=== PATIENT | female | born 1995 | race American Indian/Alaskan Native ===

== ENCOUNTER 2020-12-04 09:15 | Emergency (ER) | payer OTHER ==
[2020-12-04] MEDS ORDERED: SODIUM CHLORIDE 0.9% 1000 ML 1,000 ML IV ONE (09:50)
[2020-12-04] MEDS ORDERED: MORPHINE 4 MG/1 ML INJ IV ONE (09:50)
[2020-12-04] MEDS ORDERED: ONDANSETRON 4 MG/2 ML INJ IV ONE (09:50)
--- NOTE | 2020-12-04 09:53 | Emergency Department Report ---
ED Abdominal Pain HPI - General Chief Complaint: Abdominal Pain Stated Complaint: PAIN IN PELVIC AREA Time Seen by Provider: 12/04/20 09:36 Source: patient Mode of arrival: Ambulatory Limitations: No Limitations - History of Present Illness Initial Comments: 25-year-old female presents to the ER with sudden onset of severe low abdominal pain and right flank pain. Patient states that the pain has been constant and described as a pressure type pain with associated dysuria, hematuria and urinary frequency. She denies any nausea, vomiting, fever or chills. She denies any abnormal vaginal discharge or bleeding. She states that her last menstrual cyc le was November 12. She is not on any control. She is sexually active but denies any new sexual partners. Patient denies any significant past medical history and she denies any past surgical history. MD Complaint: abdominal pain, flank pain -: Sudden, This morning Severity scale (0 -10): 10 - Related Data Previous Rx's Medication Instructions Recorded Last Taken Type Acetaminophen/Codeine [Tylenol 1 tab PO Q6H PRN #12 tab 12/04/20 Unknown Rx /Codeine # 3 tab] cephALEXin [Keflex] 500 mg PO Q6HR #40 capsule 12/04/20 Unknown Rx metroNIDAZOLE [Flagyl] 500 mg PO Q12HR #14 tab 12/04/20 Unknown Rx Allergies Allergy/AdvReac Type Severity Reaction Status Date / Time No Known Allergies Allergy Unverified 12/04/20 09:32 ED Review of Systems ROS: Stated complaint: PAIN IN PELVIC AREA Other details as noted in HPI Comment: All other systems reviewed and negative Constitutional: denies: chills, fever Eyes: denies: eye pain, eye discharge, vision change ENT: denies: ear pain, throat pain, dental pain, hearing loss, epistaxis, congestion Respiratory: denies: cough, shortness of breath, SOB with exertion, SOB at rest, wheezing Cardiovascular: denies: chest pain, palpitations Gastrointestinal: abdominal pain. denies: nausea, vomiting, diarrhea, constipation, hematemesis, melena, hematochezia Genitourinary: denies: urgency, dysuria, frequency, hematuria, discharge, abnormal menses, dyspareunia Musculoskeletal: back pain Skin: denies: rash, lesions, change in color, change in hair/nails, pruritus Neurological: denies: headache, weakness, numbness, paresthesias, confusion, abnormal gait, vertigo Psychiatric: denies: anxiety, depression, auditory hallucinations, visual hallucinations, homicidal thoughts, suicidal thoughts Hematological/Lymphatic: denies: easy bleeding, easy bruising, swollen glands ED Past Medical Hx - Medications Home Medications: Home Medications Medication Instructions Recorded Confirmed Last Taken Type Acetaminophen/Codeine [Tylenol 1 tab PO Q6H PRN #12 tab 12/04/20 Unknown Rx /Codeine # 3 tab] cephALEXin [Keflex] 500 mg PO Q6HR #40 capsule 12/04/20 Unknown Rx metroNIDAZOLE [Flagyl] 500 mg PO Q12HR #14 tab 12/04/20 Unknown Rx ED Physical Exam - General Limitations: No Limitations General appearance: alert, in distress (Patient appears to be in pain and restless and uncomfortable) - Head Head exam: Present: atraumatic, normocephalic, normal inspection - Eye Eye exam: Present: normal appearance, PERRL, EOMI Pupils: Present: normal accommodation - Neck Neck exam: Present: normal inspection, full ROM - Respiratory Respiratory exam: Present: normal lung sounds bilaterally. Absent: respiratory distress, wheezes, rales, rhonchi - Cardiovascular Cardiovascular Exam: Present: regular rate, normal rhythm, normal heart sounds - GI/Abdominal GI/Abdominal exam: Present: soft, tenderness (Tenderness to palpation right lower quadrant and suprapubic area). Absent: distended, guarding, rebound, rigid - External exam: Present: normal external exam, other (Formulation Scientist present) Speculum exam: Present: vaginal discharge (Small amount of white discharge) Bi-manual exam: Present: adnexal tenderness (Mild right adnexal). Absent: cervical motion tendernes, adnexal mass, uterine enlargement, uterine tenderness - Extremities Exam Extremities exam: Present: normal inspection - Back Exam Back exam: Present: normal inspection, CVA tenderness (R) - Neurological Exam Neurological exam: Present: alert, oriented X3, CN II-XII intact, normal gait - Psychiatric Psychiatric exam: Present: normal affect, normal mood - Skin Skin exam: Present: intact ED Course Vital Signs 12/04/20 09:30 Temperature 98.1 F Pulse Rate 88 Respiratory 18 Rate Blood Pressure 108/69 [Left] O2 Sat by Pulse 100 Oximetry ED Medical Decision Making - Lab Data Result diagrams: 12/04/20 10:00 12/04/20 10:00 - Radiology Data Radiology results: report reviewed Patient: DEE PRAKASH MR#: [id number] : 1995 Acct:[id number] Age/Sex: 25 / F ADM Date: 12/04/20 Loc: ED Attending Dr: Ordering Physician: ROSETTA GRIDER Date of Service: 12/04/20 Procedure(s): CT abdomen pelvis w con Accession Number(s): [id number] cc: ROSETTA GRIDER CT ABDOMEN AND PELVIS WITH CONTRAST INDICATION / CLINICAL INFORMATION: Lower abdominal pain/right flank pain.. TECHNIQUE: Axial CT images were obtained through the abdomen and pelvis after Omnipaque 300, 100 cc IV [address] scans at this location are performed using CT dose reduction for ALARA by means of automated exposure control. COMPARISON: None available. FINDINGS: LOWER CHEST: No significant abnormality. LIVER: No significant abnormality. GALLBLADDER: No significant abnormality. BILE DUCTS: No significant abnormality. PANCREAS: No significant abnormality. SPLEEN: No significant abnormality. ADRENALS: No significant abnormality. RIGHT KIDNEY / URETER: No significant abnormality. LEFT KIDNEY / URETER: No significant abnormality. STOMACH / SMALL BOWEL: No significant abnormality. COLON: No significant abnormality. APPENDIX: No significant abnormality. PERITONEUM: No free fluid. No free air. No fluid collection. LYMPH NODES: No significant adenopathy. VASCULAR STRUCTURES: No significant abnormality. URINARY BLADDER: No significant abnormality. REPRODUCTIVE ORGANS: No significant abnormality. ADDITIONAL FINDINGS: None. SKELETAL SYSTEM: No significant abnormality. IMPRESSION: Negative for obstruction or localized inflammation. Signer Name: Brice Khalil MD Signed: 12/04/2020 12:59 PM Workstation Name: [id number] Transcribed By: ES Dictated By: Brice Khalil MD Electronically Authenticated By: Brice Khalil MD Signed Date/Time: 12/04/20 1259 DD/ 1252 TD/TT: - Medical Decision Making 1444: Patient reports feeling better after IV fluids, morphine and Zofran. She is currently sitting comfortably, she is not currently in any pain distress like when she first presented to the ER, she is currently not toxic and she is neurologically intact with a normal gait. Her vital have been stable throughout stay. labs reviewed -CBC and CMP unremarkable. Lipase is normal. hCG negative. Urinalysis positive UTI. CT abdomen pelvis with IV contrast shows nothing acute. Wet prep positive for BV but negative trichomoniasis or yeast. Her pelvic exam showed mild right adnexal tenderness, no mass, and no CMT. I suspect that her UTI is likely the cause of her symptoms at this time, I have a very low suspicion for PID, tubo-ovarian abscess or torsion at this time but I did offered prophylactic GC treatment, but patient opted out of treatment because she states that she does not think she has an STD. Discuss CT, labs including urinalysis results with patient. At this time there is no indication for any additional testing in the ER, admission or emergent consult. Patient will be treated for her UTI with Keflex and she will be treated for her BV with Flagyl. Encourage patient to drink more water, because she did admit that she has been drinking lots of sweet tea. Patient expressed understanding of all instructions and agree with plan. Patient stable at time of discharge. Critical care attestation.: If time is entered above; I have spent that time in minutes in the direct care of this critically ill patient, excluding procedure time. ED Disposition Clinical Impression: UTI (urinary tract infection), Bacterial vaginitis Disposition: 01 HOME / SELF CARE / HOMELESS Is pt being admited?: No Does the pt Need Aspirin: No Condition: Stable Instructions: Bacterial Vaginosis, [id number], Urinary Tract Infection, Adult, Bacterial Vaginosis (ED), Abdominal Pain (ED) Additional Instructions: I recommend that you increase your water intake. Try and decrease the amount of sweet tea that you have been drinking. Take the Keflex and the Flagyl as prescribed. Follow-up closely with your primary care doctor. Return to the ER if your symptoms changes or worsens in any way. Prescriptions: metroNIDAZOLE [Flagyl] 500 mg PO Q12HR #14 tab cephALEXin [Keflex] 500 mg PO Q6HR #40 capsule Acetaminophen/Codeine [Tylenol /Codeine # 3 tab] 1 tab PO Q6H PRN #12 tab PRN Reason: pain Referrals: [facility] [Provider Group] - 3-5 Days Forms: Work/School Release Form(ED) Time of Disposition: 14:27
[2020-12-04 10:56] LABS: Mucus,Urine 1+ /HPF
[2020-12-04 10:57] LABS: RBC,Urine > 182.0 /HPF (0.0-6.0); WBC,Urine > 182.0 /HPF (0.0-6.0)
[2020-12-04 11:05] LABS: Basophils % (Auto) 0.5 % (0.0-1.8); Eosinophils # (Auto) 0.3 K/mm3 (0.0-0.4); Eosinophils % (Auto) 4.6 % (0.0-4.3); Hematocrit 39.7 % (30.3-42.9); Hemoglobin 13.2 gm/dl (10.1-14.3); Lymphocytes # (Auto) 1.5 K/mm3 (1.2-5.4); Lymphocytes % (Auto) 19.5 % (13.4-35.0); Mean Corpuscular HGB Conc 33 % (30-34); Mean Corpuscular Volume 95 fl (79-97); Monocytes # (Auto) 0.8 K/mm3 (0.0-0.8); Monocytes % (Auto) 10.9 % (0.0-7.3); Platelet Count 238 K/mm3 (140-440); Red Cell Distribution Width 13.6 % (13.2-15.2)
[2020-12-04 11:12] LABS: Bilirubin,Urine NEG (Negative); Blood,Urine LG (Negative); Color,Urine Yellow (Yellow); Urobilinogen,Urine < 2.0 mg/dL (<2.0)
[2020-12-04 11:15] LABS: Protein,Urine >500 mg/dL (Negative)
[2020-12-04 11:28] LABS: BUN/Creatinine Ratio 14; Blood Urea Nitrogen 11 mg/dL (7-17); Calcium 9.4 mg/dL (8.4-10.2); Hemolysis Index 43
--- NOTE | 2020-12-04 13:03 | Cat Scan Report ---
CT ABDOMEN AND PELVIS WITH CONTRAST INDICATION / CLINICAL INFORMATION: Lower abdominal pain/right flank pain.. TECHNIQUE: Axial CT images were obtained through the abdomen and pelvis after Omnipaque 300, 100 cc I V contrast. All CT scans at this location are performed using CT dose reduction for ALARA by means o f automated exposure control. COMPARISON: None available. FINDINGS: LOWER CHEST: No significant abnormality. LIVER: No significant abnormality. GALLBLADDER: No significant abnormality. BILE DUCTS: No significant abnormality. PANCREAS: No significant abnormality. SPLEEN: No significant abnormality. ADRENALS: No significant abnormality. RIGHT KIDNEY / URETER: No significant abnormality. LEFT KIDNEY / URETER: No significant abnormality. STOMACH / SMALL BOWEL: No significant abnormality. COLON: No significant abnormality. APPENDIX: No significant abnormality. PERITONEUM: No free fluid. No free air. No fluid collection. LYMPH NODES: No significant adenopathy. VASCULAR STRUCTURES: No significant abnormality. URINARY BLADDER: No significant abnormality. REPRODUCTIVE ORGANS: No significant abnormality. ADDITIONAL FINDINGS: None. SKELETAL SYSTEM: No significant abnormality. IMPRESSION: Negative for obstruction or localized inflammation. Signer Name: Brice Khalil MD Signed: 12/04/2020 12:59 PM Workstation Name: [id number]
[2020-12-04 13:04] LABS: Alanine Aminotransferase 8 units/L (7-56); Albumin 4.2 g/dL (3.9-5)
[2020-12-04 13:08] LABS: Bilirubin,Direct < 0.2 mg/dL (0-0.2)
[2020-12-04] MEDS ORDERED: cefTRIAXone/NS 1 GM/50 ML 1 GM/50 ML BAG IV ONE (13:51)
[2020-12-04 14:46] VITALS: BP 121/73
== END 2020-12-04 14:51 | disposition home or self-care (01) ==
LOC: ED 09:15
DX: N39.0 Urinary tract infection, site not specified (principal); N76.0 Acute vaginitis; B96.89 Other specified bacterial agents as the cause of diseases classified elsewhere; Z79.899 Other long term (current) drug therapy
CPT/HCPCS: 36415; 74177; 80048; 80076; 81001; 82150; 83690; 84703; 85025; 87210; 87591; 96361; 96365; 96375; 99284; J0696; J2270; J2405; J7030; Q9967